=== PATIENT | male | born 1985 | race African-American/Black ===

== ENCOUNTER 2021-03-22 23:28 | Emergency (ER) | payer OTHER ==
[~2021-03-22] VITALS: Ht 195.6 cm; Wt 108.9 kg
--- NOTE | 2021-03-22 23:40 | NUR ---
pt bibself c/o sore throat, ear and sinus painx 3 days. Pt aaox4 breathing evenly and unlabored. Pt states it is difficult for him to swallow and talk from his "tonsils being inflamed" Pt skin warm, dry, and intact. Pt attached to monitor and pox. pt given blanket and calllight within reach. Willcontinue to monitor
[2021-03-22] MEDS ORDERED: AMOX-430 PO (23:56)
[2021-03-22] MEDS ORDERED: IBUP-1957 PO (23:56)
[2021-03-23] MEDS: DEXAMETHASONE SOD PHOSPHATE 4 MG/ML VIAL IM ONE
[2021-03-23] MEDS: AMOX/CLAVULANATE 875 MG TABLET PO ONE
[2021-03-23] MEDS ORDERED: DEXAMETHASONE SOD PHOSPHATE 10 MG/ML VIAL ONE (00:09)
[2021-03-23] MEDS ORDERED: AMOX/CLAVULANATE 875 MG TABLET ONE (00:09)
--- NOTE | 2021-03-23 00:19 | NUR ---
Patient discharged to home in stable condition. Written and verbal after care instructions given. Patient verbalizes understanding of instruction. Pt ambulatory with a steady gait
[2021-03-23 00:25] VITALS: BP 140/83
== END 2021-03-23 00:19 | disposition home or self-care (01) ==
LOC: ER 23:39
DX: J02.9 Acute pharyngitis, unspecified (principal); Z79.899 Other long term (current) drug therapy
CPT/HCPCS: 96372; 99283; J1100

== ENCOUNTER 2023-01-04 19:56 | Emergency (ER) | payer OTHER ==
[~2023-01-04] VITALS: Ht 190.5 cm; Wt 122.5 kg
[~2023-01-04 19:56] MED LIST: AMOX-430 PO; IBUP-1957 PO
--- NOTE | 2023-01-04 20:06 | NUR ---
BIBS. R TEMPORAL HEADACHE X 4 DAYS. PT A/OX4. TOLERATING R/A WELL WITH NO RESP DISTRESS.
[2023-01-04] MEDS ORDERED: SUMATRIPTAN SUCCINATE 6 MG/0.5 ML VIAL SQ ONE ×2 (20:30→20:31)
--- NOTE | 2023-01-04 20:32 | NUR ---
PT TAKEN TO CT VIA [facility]
--- NOTE | 2023-01-04 20:41 | NUR ---
PT RETURNED TO ER BED [address]
[2023-01-04] MEDS ORDERED: SUMA50TA PO (21:54)
--- NOTE | 2023-01-04 22:09 | NUR ---
Patient discharged to home in stable condition. Written and verbal after care instructions given. Patient verbalizes understanding of instruction.
[2023-01-04 22:12] VITALS: BP 146/81
== END 2023-01-04 22:13 | disposition home or self-care (01) ==
LOC: ER 20:08
DX: R51.9 Headache, unspecified (principal); Z60.2 Problems related to living alone; Z79.899 Other long term (current) drug therapy
CPT/HCPCS: 70450-TC; J3030